=== PATIENT | male | born 1975 | race Caucasian/White ===

== ENCOUNTER 2019-02-05 13:34 | Outpatient (CLI) | payer OTHER, SELFPAY ==
[2019-02-05] VITALS (9 sets, daily range): BP systolic 108–138; BP diastolic 61–92; PULSE 62–76; RESP 16–18; TEMP 36.4; O2SAT 95–97
--- NOTE | 2019-02-05 13:37 | DI.RAD.S_ITS ---
PROCEDURE: PAIN L/S TRANSFORAMINAL INJECT INDICATIONS: SPINAL STENOSIS FINDINGS: Fluoroscopic spot filming was performed to verify placement of spinal needles at the L5-S1 level(s), as labeled on the films. Appropriate location(s) of the needle tip(s) was confirmed by injection of iodinated contrast. Dictated by: Mumtaz Davidson M.D. on 02/05/2019 at 15:31 Approved by: Mumtaz Davidson M.D. on 02/05/2019 at 15:31
[2019-02-05] MEDS: fentaNYL 100 MCG/2 ML INJ 50 MCG IV (14:47)
[2019-02-05] MEDS: MIDAZOLAM 5 MG/5 ML VIAL IV (14:47)
[2019-02-05] MEDS: IOPAMIDOL 15 ML VIAL 3 ML INJ (14:57)
[2019-02-05] MEDS: BETAMETHASONE 30 MG/5 ML MDV 6 MG INJ (14:57)
[2019-02-05] MEDS: DEXAMETHASONE 10 MG/ML VIAL 20 MG INJ (14:57)
[2019-02-05] MEDS: BUPIVACAINE 0.25% (PF) VIAL 2 ML INJ (14:57)
--- NOTE | 2019-02-05 14:59 | PC.NURSE ---
ASSISTING PT OFF TABLE AND TRANSPORTING TO POST PROC AREA IN STABLE CONDITION
--- NOTE | 2019-02-05 15:03 | P.PCN_ITS ---
Procedures Date/Time Date of procedure: 02/05/19 Time of procedure: 15:02 General Procedure description: PREOP DIAGNOSIS 1. FORMAINAL STENOSIS WITH LE SYMPTOMS POST OP DIAGNOSIS 1. FORMAINAL STENOSIS WITH LE SYMPTOMS PROCEDURES 1. FLUOROSCOPICALLY GUIDED CONTRAST CONTROLLED TRANSFORAMINAL EPIDURAL STEROID INJECTION - Left L5/S1 PHYSICIAN: Ricky Montelongo DO INDICATIONS: Cameron is referred by Dr. Eagle for treatment of Foraminal Stenosis with Left LE Symptoms FINDINGS Foraminal Nerve Root Compression secondary to disc disease and facet hypertrophy DESCRIPTION OF PROCEDURE: Following denial of allergy and review of potential side effects and complications, including, but not necessarily limited to, infection, allergic reaction, local tissue breakdown, stroke, temporary or permanent nerve injury, paralysis, and possible , the patient indicated that the patient understood and agreed to proceed. An informed consent document was signed by the patient, witnessed by a nurse, and placed in the patient's chart. Additionally, other treatment options including medications, modalities, and physical therapy were reviewed with the patient. After review of previous anaesthesic history and IV conscious sedation the victor hugo ent was deemed safe to proceed with todays procedure with IV conscious sedation as ASA class II designation. Safety time-out was performed to confirm patient ID, procedure to be performed and site of procedure. IV sedation was accomplished with a combination of 3mg of Versed and 50mg of Fentanyl was administered by the RN after DO order, titrated to patient comfort during the course of the procedure while the patient remained responsive to all verbal commands In the prone position following sterile prep and drape of the lumbar region, the Left L5/S1 posterior neuroforamen was identified fluoroscopically. The skin was anesthetized via a 25-gauge 1.5-inch needle with 1% lidocaine solution. At this point, a 22-gauge 5-inch spinal needle was atraumatically introduced and advanced under fluoroscopic guidance through the posterior Left L5/S1 neuroforamen to approximately the anterior aspect of the canal. Depth was confirmed on lateral view. Following negative aspiration, injection of approximately 1.5 cc of Isovue 200 under live fluoroscopy in the AP view confirmed excellent flow along the nerve root, into the epidural space without vascular or intrathecal uptake observed Radiological data, including multiple fluoroscopic views of the lumbosacral spine, reveal a spinal needle at the Left L5/S1 posterior neuroforamen. Subsequent views show flow of contrast material flowing superiorly and inferiorly along the nerve root confirming epidural flow. Subsequently, a test dose of 1.5 cc of 1% lidocaine solution was administered and patient was observed for two minutes for signs or symptoms of complications, including abdominal pain, shortness of breath, bilateral upper or lower extremity weakness, nausea and vomiting, prior to steroid injection. At this point, a total of 3cc or 20mg of dexamethasone and 6mg of betamethasone was injected without incident. The procedure tolerated the procedure well without signs or symptoms of complications prior to transfer to the recovery area continued monitoring without incident. The patient was then transferred to the recovery area where they were observed for an appropriate time after the injection. The patient reported a VAS score of 7 prior to the procedure and a post-procedure VAS of 0. Total Fluoroscopy Time: 20.9 seconds Total Conscious Sedation Time: 24min POST OP INSTRUCTIONS The patient was provided a Pain Log to continue to record their response to the target-specific procedure prior to follow-up visit with their referring physician. Additionally, specific post-injection care instructions and a contact number to our office were provided if concerns arise regarding possible complications associated with the procedure are suspected. Ricky Montelongo DO Complications: none
--- NOTE | 2019-02-05 15:35 | PC.NURSE ---
pt returned via wheelchair from procedure, awake and alert, able to transfer with standby assist. Resumed monitoring from Sushma MARROQUIN.
== END 2019-02-05 15:28 ==
LOC: RAD 13:36
PROVIDERS: PCP Family Medicine; Visit Provider Physical Medicine & Rehabilitation
DX: M48.07 Spinal stenosis, lumbosacral region (principal); M48.062 Spinal stenosis, lumbar region with neurogenic claudication; M51.17 Intervertebral disc disorders with radiculopathy, lumbosacral region
CPT/HCPCS: 64483; 99152; J0702; J1100; J2250; J3010

== ENCOUNTER 2019-03-21 07:24 | Outpatient (CLI) | payer OTHER, SELFPAY ==
[2019-03-21] VITALS (8 sets, daily range): BP systolic 120–150; BP diastolic 71–98; PULSE 89–102; RESP 16–22; TEMP 36.1; O2SAT 95–98
--- NOTE | 2019-03-21 07:27 | DI.RAD.S_ITS ---
PROCEDURE: PAIN LUMBAR INJ/BLK BILAT INDICATIONS: SPINAL STENOSIS FINDINGS: Fluoroscopic spot filming was performed to verify placement of spinal needles at the level(s) as labeled on the films. Appropriate location(s) of the needle tip(s) was confirmed by injection of iodinated contrast. IMPRESSION: Fluoroscopy for pain management. Dictated by: Dian Ruiz M.D. on 03/21/2019 at 9:46 Approved by: Dian Ruiz M.D. on 03/21/2019 at 9:47
[2019-03-21] MEDS: MIDAZOLAM 5 MG/5 ML VIAL IV (08:33)
[2019-03-21] MEDS: fentaNYL 100 MCG/2 ML INJ 50 MCG IV (08:33)
[2019-03-21] MEDS: LIDOCAINE 1% 20 ML INJ 10 ML INJ (08:38)
[2019-03-21] MEDS: BUPIVACAINE 0.5% (PF) VIAL 2 ML INJ (08:38)
[2019-03-21] MEDS: IOPAMIDOL 15 ML VIAL 3 ML INJ (08:38)
[2019-03-21] MEDS: BETAMETHASONE 30 MG/5 ML MDV 12 MG INJ (08:40)
--- NOTE | 2019-03-21 08:52 | PC.NURSE ---
Pt tolerated procedure well. Able to get off the table with standby assist. Transferred pt via wheelchair awake and alert to pre procedure room for continued monitoring with Sushma MARROQUIN.
--- NOTE | 2019-03-21 08:57 | P.PCN_ITS ---
Procedures Date/Time Date of procedure: 03/21/19 Time of procedure: 08:56 General Procedure description: Procedure description: 1. FACET ARTHROPATHY PROCEDURES: 1. BILATERAL- L4, L5 and S1 MB BLOCKS PHYSICIAN: DO FAVIAN Bennett Cameron is referred by Dr. Cooley for treatment of Bilateral Axial LBP. DESCRIPTION OF PROCEDURE Fluoroscopically guided, contrast-controlled bilateral L4, L5 and S1 medial branch blocks with 0.5cc of 0.5% Marcaine. Following review of allergy and review of potential side effects and complications, including, but not necessarily limited to, infection, allergic reaction, local tissue breakdown, nerve injury, paralysis, stroke and possible , the patient indicated that the patient understood and agreed to proceed. An informed consent document was signed by the patient, witnessed by a nurse, and placed in the patient's chart. After review of previous anaesthesic history and IV conscious sedation the patient was deemed safe to proceed with todays procedure with IV conscious sedation as ASA class II designation. Safety time-out was performed to confirm patient ID, procedure to be performed and site of procedure. IV sedation was accomplished with a combination of 3mg of Versed was administered by the RN after DO order, titrated to patient comfort during the course of the procedure while the patient remained responsive to all verbal commands In the prone position, following sterile prep and drape of the lumbar region, the right L4, L5 and S1 anatomical location of the medial branch of the dorsal ramus was identified fluoroscopically. Subsequently an anesthetic skin wheal using 1% lidocaine solution was initiated at each of the anatomical spots. Subsequently then a 22-gauge 5-inch spinal needle was atraumatically introduced and advanced under fluoroscopic guidance at each of the corresponding sites at the right L4, L5 and S1 MB. After negative aspiration, 0.2 cc of Isovue 200 was injected, confirming placement without vascular or intrathecal uptake. Sub sequently then 0.5 cc of 0.5% Marcaine solution was injected at each of the corresponding sites at the right L4, L5 and S1 medial branch locations. The identical procedure was replicated on the left. The patient tolerated the procedure well without signs or symptoms of complications prior to transfer to the recovery area continued monitoring without incident. Post-procedure, the patient was monitored initiating provocative activities to measure the amount of relief from block of the facetogenic pain. The patient reported a VAS of 7 prior to the procedure and a post-procedure VAS of 1. It has been a pleasure to assist in the diagnostic and therapeutic care of your patient. Total Fluoroscopy Time: 24.8 seconds Total Conscious Sedation Time: 24min POST OP INSTRUCTIONS The patient was provided with a Pain Log to complete over the next several hours and subsequent days prior to the patient's follow up with the ordering physician. If the patient has cafe assistant relief to the solution applied, then they may be a candidate for medial branch rhizotomy. The patient is aware, was provided, once again, with a Pain Log and will follow up with the referring physician for review and clinical correlation Ricky Montelongo DO Complications: none
== END 2019-03-21 09:19 | disposition home or self-care (01) ==
LOC: RAD 07:26
PROVIDERS: PCP Family Medicine; Visit Provider Physical Medicine & Rehabilitation
DX: M47.816 Spondylosis without myelopathy or radiculopathy, lumbar region (principal); M47.817 Spondylosis without myelopathy or radiculopathy, lumbosacral region; M54.5 Low back pain
CPT/HCPCS: 64493; 64494; 64495; 99152; J0702; J2250; J3010